=== PATIENT | male | born 1970 | race Caucasian/White ===

== ENCOUNTER 2017-01-31 18:20 | Emergency (ER) | payer SELFPAY ==
[2017-01-31 19:28] LABS: BASOPHILS 0.6 % (0.0-2.0); EOSINOPHILS 2.2 % (0-7); HEMATOCRIT 42.3 % (42.0-54.0); HEMOGLOBIN 14.2 g/dL (13.5-17.5); IMMATURE GRANULOCYTES 0.2 % (0-5); LYMPHOCYTES 12.2 % (15-50); MCH 29.6 pg (26.0-34.0); MCHC 33.6 g/dL (31.0-37.0); MCV 88.3 fL (80.0-100.0); MEAN PLATELET VOLUME 9.7 fL (7.4-10.4); MONOCYTES 20.6 % (2-11); NEUTROPHILS 64.2 % (40-80); PLATELET COUNT 183 10x3/uL (130-400); RBC 4.79 10x6/uL (4.20-6.10); RDW 12.3 % (11.5-14.5)
[2017-01-31 19:47] LABS: ALBUMIN 4.3 g/dL (3.4-5.0); ALKALINE PHOSPHATASE 48 U/L (46-116); ALT (SGPT) 52 U/L (10-68); BILIRUBIN - TOTAL 1.13 mg/dL (0.2-1.3); CALC OSMOLALITY 276 mosm/kg (275-300); CARBON DIOXIDE 28.5 mmol/L (21.0-32.0); CHLORIDE - SERUM 101 mmol/L (98-107); CREATININE - SERUM 1.1 mg/dL (0.6-1.3); GLUCOSE 121 mg/dL (74-106); POTASSIUM - SERUM 3.6 mmol/L (3.5-5.1); PROTEIN - SERUM 7.6 g/dL (6.4-8.2); SODIUM 138 mmol/L (136-145); UREA NITROGEN 12 mg/dL (7-18); eGFR NON AFRICAN AMERICAN 76 mL/min (90-120)
== END 2017-01-31 20:34 | disposition home or self-care (01) ==
LOC: D.ER 18:20
PROVIDERS: Family Medicine
DX: J11.1 Influenza due to unidentified influenza virus with other respiratory manifestations (principal)

== ENCOUNTER 2020-01-12 17:55 | Emergency (ER) | payer MEDICAID ==
[2020-01-12 18:04] VITALS: Wt 79.5 kg
[2020-01-12] MEDS ORDERED: VOLTAREN75 MG PO (20:03)
[2020-01-12 20:49] VITALS: BP 132/86
== END 2020-01-12 20:49 | disposition home or self-care (01) ==
LOC: D.ER 17:55
DX: M79.672 Pain in left foot (principal); W22.8XXA Striking against or struck by other objects, initial encounter; Y93.9 Activity, unspecified; Y92.9 Unspecified place or not applicable